=== PATIENT | male | born 1985 | race Caucasian/White ===

== ENCOUNTER 2017-02-20 17:22 | Emergency (ER) | payer OTHER ==
[2017-02-20] MEDS ORDERED: Ciprofloxacin 0.3% OPTH.SOL* 2.5 ML BTL LEFT EYE ONE (19:28)
--- NOTE | 2017-02-20 19:41 | ED ---
Throat Pain/Nasal Congestion - HPI Summary HPI Summary: Patient presents to ED with CC of left eye redness and discharge with slight discomfort since last night. He is a contact wearer and took out his contacts before bed last night. He states this morning he awoke with some crusting around the eye, but complains more of watery discharge. Eye is injected but he denies visual changes. He is currently wearing his glasses. He states intermittently will feel as though there is a FB when closing his eyes, but nothing currently. Denies trauma. - History of Current Complaint Chief Complaint: EDEyeProblem Time Seen by Provider: 02/20/17 17:55 Hx Obtained From: Patient Onset/Duration: Sudden Onset Severity: Moderate Related History: Prior ENT Surgery - 5 surgeries to the eye muscles - Epiglottits Risk Factors Epiglottis Risk Factors: Sudden Onset PMH/Surg Hx/FS Hx/Imm Hx Previously Healthy: Yes - Immunization History Hx Pertussis Vaccination: No Immunizations Up to Date: No Infectious Disease History: No Infectious Disease History: Denies: Traveled Outside the in Last 30 Days - Social History Occupation: Employed Full-time Lives: With Family Alcohol Use: None Hx Substance Use: No Substance Use Type: Reports: None Hx Tobacco Use: Yes Smoking Status (MU): Light Every Day Tobacco Smoker Do You Chew or Dip Tobacco: No Review of Systems Constitutional: Negative Positive: Photophobia, Drainage, Erythema ENT: Negative Cardiovascular: Negative Respiratory: Negative Musculoskeletal: Negative Skin: Negative Neurological: Negative All Other Systems Reviewed And Are Negative: Yes Physical Exam Triage Information Reviewed: Yes Vital Signs On Initial Exam: Initial Vitals Temp Pulse Resp BP Pulse Ox 98.7 F 68 18 116/72 100 02/20/17 17:30 02/20/17 17:30 02/20/17 17:30 02/20/17 17:30 02/20/17 17:30 Vital Signs Reviewed: Yes Appearance: Positive: Well-Appearing, Well-Nourished Skin: Positive: Warm, Skin Color Reflects Adequate Perfusion Head/Face: Positive: Normal Head/Face Inspection Eyes: Positive: EOMI, CHEL, Conjunctiva Inflammed, Discharge ENT: Positive: Hearing grossly normal Neck: Positive: Supple, No Lymphadenopathy Respiratory/Lung Sounds: Positive: Clear to Auscultation, Breath Sounds Present Cardiovascular: Positive: Normal, RRR, Pulses are Symmetrical in both Upper and Lower Extremities Musculoskeletal: Positive: Normal, Strength/ROM Intact Neurological: Positive: Normal, Sensory/Motor Intact Psychiatric: Positive: Normal AVPU Assessment: Alert Diagnostics - Vital Signs Vital Signs Temp Pulse Resp BP Pulse Ox 02/20/17 17:47 98.7 F 68 18 116/72 98 02/20/17 17:30 98.7 F 68 18 116/72 100 - Laboratory Lab Statement: Any lab studies that have been ordered have been reviewed, and results considered in the medical decision making process. EENT Course/Dx - Course Course Of Treatment: Fluorosceine stain applied and neal lamp revealed no FB or corneal abrasion. Will treat as conjunctivitis d/t erythema, watery drainage. Cipro opth given to patient in ED to cover for pseudomonas bacteria associated with contact wearers. - Differential Diagnoses Differential Diagnoses: Abrasion, Conjunctivitis, Pain of Unknown Etiology, Penetrating Injury - Diagnoses Provider Diagnoses: Bacterial conjunctivitis of left eye Discharge - Discharge Plan Condition: Stable Disposition: HOME Patient Education Materials: Conjunctivitis (ED) Referrals: No Primary Care Phys,NOPCP [Primary Care Provider] - Jose Hubbard MD [Medical Doctor] - Additional Instructions: Follow up with Dr. Hubbard next week if symptoms persist or you notice any decrease in vision. Cipro drops to the eye as directed. For worsening symptoms between and wednesday, come back to ED. Rest the eye as much as possible Throw away current contacts and do not place new contacts in for at least 5 days or until full cessation of all symptoms. Cold compresses over area. Wash hands frequently.
[2017-02-20 20:07] VITALS: BP 113/74
== END 2017-02-20 21:00 | disposition home or self-care (01) ==
LOC: EDBD → ED 17:22
DX: H10.89 Other conjunctivitis (principal); Z72.0 Tobacco use
CPT/HCPCS: 99282; A9270-GY

== ENCOUNTER 2019-07-20 09:04 | Emergency (ER) | payer BC, OTHER ==
[2019-07-20 09:32] VITALS: BP 135/85
--- NOTE | 2019-07-20 10:01 | UC ---
Ear Complaint HPI - HPI Summary HPI Summary: left ear pain x 2 days cold symptoms for 2 weeks pain is 4 out of 10 , constant, dull , no radiation noting makes it better or worse + nasal congestion , cough , pnd no fever, no sinus pain - History of Current Complaint Chief Complaint: UCEar Stated Complaint: LEFT EAR/JAW PAIN,COUGH Time Seen by Provider: 07/20/19 09:38 Hx Obtained From: Patient Onset/Duration: Gradual Onset, Lasting Days - 2, Still Present Severity Initially: Moderate Severity Currently: Moderate Pain Intensity: 6 Pain Scale Used: 0-10 Numeric Aggravating Factors: Nothing Alleviating Factors: Nothing Associated Signs/Symptoms: Positive: Hearing Loss - left ear decrease hearing, URI Symptoms. Negative: Discharge, Foreign Body Sensation, Trauma to Ear, Swelling @ - Allergies/Home Medications Allergies/Adverse Reactions: Allergies Allergy/AdvReac Type Severity Reaction Status Date / Time nickel AdvReac Rash Verified 07/20/19 09:32 Laundrey Detergent AdvReac Rash Uncoded 07/20/19 09:32 PMH/Surg Hx/FS Hx/Imm Hx Respiratory History: Asthma - Surgical History Surgery Procedure, Year, and Place: denies - Family History Known Family History: Negative: Diabetes - Social History Alcohol Use: None Substance Use Type: Marijuana Substance Use Comment - Amount & Last Used: every other day Smoking Status (MU): Light Every Day Tobacco Smoker Review of Systems All Other Systems Reviewed And Are Negative: Yes Constitutional: Positive: Negative Skin: Positive: Negative Eyes: Positive: Negative ENT: Positive: Sore Throat, Ear Ache, Nasal Discharge. Negative: Sinus Congestion, Sinus Pain/Tenderness Respiratory: Positive: Cough Cardiovascular: Positive: Negative Is Patient Immunocompromised?: No Physical Exam Triage Information Reviewed: Yes Appearance: Well-Appearing, No Pain Distress, Well-Nourished Vital Signs: Initial Vital Signs Temp 98.3 F 07/20/19 09:29 Pulse 85 07/20/19 09:29 Resp 20 07/20/19 09:29 BP 135/85 07/20/19 09:29 Pulse Ox 100 07/20/19 09:29 Vital Signs Reviewed: Yes Eye Exam: Normal Eyes: Positive: Conjunctiva Clear ENT: Positive: Normal ENT inspection, Hearing grossly normal, Pharyngeal erythema, Nasal drainage, TM bulging - left TM, TM red - left TM Neck: Positive: Supple, Nontender, No Lymphadenopathy Respiratory: Positive: Chest non-tender, Lungs clear, Normal breath sounds Cardiovascular: Positive: RRR, No Murmur, Pulses Normal Ear Complaint Course/Dx - Differential Dx/Diagnosis Provider Diagnosis: Otitis media of left ear Discharge ED - Sign-Out/Discharge Documenting (check all that apply): Patient Departure All imaging exams completed and their final reports reviewed: No Studies - Discharge Plan Condition: Stable Disposition: HOME Prescriptions: Amoxicillin PO (*) [Amoxicillin 875 MG (*)] 875 mg PO BID #20 tab Patient Education Materials: Ear Infection (ED) Referrals: No Primary Care Phys,NOPCP [Primary Care Provider] - If Needed - Billing Disposition and Condition Condition: STABLE Disposition: Home
== END 2019-07-20 09:48 | disposition home or self-care (01) ==
LOC: UCCORT 09:04
DX: H66.92 Otitis media, unspecified, left ear (principal); J45.909 Unspecified asthma, uncomplicated; R09.89 Other specified symptoms and signs involving the circulatory and respiratory systems; F17.290 Nicotine dependence, other tobacco product, uncomplicated; Z91.09 Other allergy status, other than to drugs and biological substances
CPT/HCPCS: 99211; G0463